=== PATIENT | male | born 1940 | race Caucasian/White ===

== ENCOUNTER 2021-04-25 16:56 | Emergency (ER) | payer MEDICARE ==
[2021-04-25 18:08] LABS: HEMOGLOBIN 13.9 gm/dl (14.0-17.5); RED BLOOD COUNT 4.6 M/UL (4.20-5.50); WHITE BLOOD COUNT 8.2 K/UL (4.5-11.0)
[2021-04-25 18:29] LABS: BUN/CREATININE RATIO 30 (0-10)
== END 2021-04-25 22:25 | disposition home or self-care (01) ==
LOC: ER1 16:56
PROVIDERS: Physician Assistant
DX: I48.91 Unspecified atrial fibrillation (principal); E03.9 Hypothyroidism, unspecified; I10 Essential (primary) hypertension; Z85.05 Personal history of malignant neoplasm of liver
CPT/HCPCS: 71045; 80053; 82550; 82553; 83874; 84439; 84443; 84484; 85025; 93005; 99285

== ENCOUNTER 2021-05-03 12:44 | Inpatient (IN) | payer MEDICARE ==
[~2021-05-03] VITALS: Ht 182.9 cm; Wt 84.8 kg
[2021-05-03 13:21] LABS: HEMOGLOBIN 14.5 gm/dl (14.0-17.5); RED BLOOD COUNT 4.53 M/UL (4.20-5.50); WHITE BLOOD COUNT 9.9 K/UL (4.5-11.0)
[2021-05-03 13:45] LABS: BUN/CREATININE RATIO 40 (0-10)
[2021-05-04 04:01] LABS: HEMOGLOBIN 13.4 gm/dl (14.0-17.5); RED BLOOD COUNT 4.23 M/UL (4.20-5.50); WHITE BLOOD COUNT 9.1 K/UL (4.5-11.0)
[2021-05-04 09:28] LABS: ADENOVIRUS F 40/41 Not Detected (Negative); ASTROVIRUS Not Detected (Negative); CAMPYLOBACTER Not Detected (Negative); CLOSTRIDIUM DIFFICILE TOX A/B Not Detected (Negative); CRYPTOSPORIDIUM Not Detected (Negative); E.COLI 0157 Not Detected (Negative); ENTAMOEBA HISTOLYTICA Not Detected (Negative); ENTEROAGGREGATIVE E.COLI (EAEC Not Detected (Negative); ENTEROPATHOGENIC E.COLI (EPEC) Not Detected (Negative); ENTEROTOXIGENIC E.COLI (ETEC) Not Detected (Negative); GIARDIA LAMBLIA Not Detected (Negative); NOROVIRUS GI/GII Not Detected (Negative); PLESIOMONAS SHIGELLOIDES Not Detected (Negative); ROTOVIRUS A Not Detected (Negative); SALMONELLA Not Detected (Negative); SAPOVIRUS Not Detected (Negative); SHIG/ENTEROINVAS.ECOLI (EIEC) Not Detected (Negative); SHIGA-LIK TOX.PRO.E.COLI (STEC Not Detected (Negative); VIBRIO Not Detected (Negative); VIBRIO CHOLERAE Not Detected (Negative); YERSINIA ENTEROCOLITICA Not Detected (Negative)
[2021-05-04] MEDS ORDERED: LOPRESSOR100 MG PO (11:32)
[2021-05-04] MEDS ORDERED: ELIQUIS 5 MG TAB5 MG PO (11:33)
[2021-05-04] MEDS ORDERED: KLOR-CON 1010 MEQ PO (11:33)
[2021-05-04] MEDS ORDERED: NORVASC5 MG PO (11:34)
[2021-05-04] MEDS ORDERED: HYDROCHLOROTHIA25 MG PO (11:35)
[2021-05-04] MEDS ORDERED: LIPITOR40 MG PO (11:35)
[2021-05-04] MEDS ORDERED: HUMALOG100 UNIT/1 SC (11:35)
[2021-05-04] MEDS ORDERED: LANTUS100 UNIT/1 SC (11:36)
[2021-05-04] MEDS ORDERED: ZESTRIL 40 MG T40 MG PO (11:36)
[2021-05-06 02:44] LABS: RED BLOOD COUNT 4.16 M/UL (4.20-5.50); WHITE BLOOD COUNT 6.8 K/UL (4.5-11.0)
[2021-05-07 03:44] LABS: HEMOGLOBIN 13.4 gm/dl (14.0-17.5); RED BLOOD COUNT 4.28 M/UL (4.20-5.50); WHITE BLOOD COUNT 7.7 K/UL (4.5-11.0)
[2021-05-08 15:49] LABS: HEMOGLOBIN 14.2 gm/dl (14.0-17.5); RED BLOOD COUNT 4.44 M/UL (4.20-5.50); WHITE BLOOD COUNT 9.5 K/UL (4.5-11.0)
[2021-05-09 03:28] LABS: HEMOGLOBIN 14.1 gm/dl (14.0-17.5); RED BLOOD COUNT 4.43 M/UL (4.20-5.50); WHITE BLOOD COUNT 10.2 K/UL (4.5-11.0)
--- NOTE | 2021-05-09 12:32 | NUR ---
Lab results reviewed with patient and family per patient request
[2021-05-10 05:10] LABS: HEMOGLOBIN 14.6 gm/dl (14.0-17.5)
[2021-05-10 05:14] LABS: RED BLOOD COUNT 4.94 M/UL (4.20-5.50); WHITE BLOOD COUNT 4.3 K/UL (4.5-11.0)
[2021-05-10 05:52] LABS: BUN/CREATININE RATIO 28 (0-10)
--- NOTE | 2021-05-11 01:11 | NUR ---
PT PULLED OUT IV. ARM ASSESSED RED AND WARM. PLACED ICEPACK ON ARM. PT DRINKING ADEQUATE FLUIDS AND IV ANTIBIOTICS HAVE BEEN DISCONTINUED. DISCUSSED WITH PATIENT AT THIS TIME. PT DOES NOT WISH TO HAVE IV REPLACED STATES. "IM BEING DISCHARGED TODAY AND DON'T REALLY WANT IT"
[2021-05-11 06:53] LABS: RED BLOOD COUNT 4.76 M/UL (4.20-5.50); WHITE BLOOD COUNT 9.9 K/UL (4.5-11.0)
--- NOTE | 2021-05-12 00:21 | NUR ---
PT REFUSED HIS PERCOCET AND XANAX. PROVIDED PT CHRISTINA. WITNESSED BY NEYMAR WYLIEGROUND SUPPORT EQUIPMENT ASSEMBLER. WILL ATTEMPT IV AND TELE PLACEMENT ONCE PT CALMER.
[2021-05-12 07:16] LABS: HEMOGLOBIN 14.2 gm/dl (14.0-17.5); RED BLOOD COUNT 4.46 M/UL (4.20-5.50); WHITE BLOOD COUNT 11.5 K/UL (4.5-11.0)
[2021-05-12 17:13] LABS: HEMOGLOBIN 13.8 gm/dl (14.0-17.5); RED BLOOD COUNT 4.29 M/UL (4.20-5.50); WHITE BLOOD COUNT 13.8 K/UL (4.5-11.0)
--- NOTE | 2021-05-12 18:14 | NUR ---
PT ARRIVED TO UNIT AT 17:30, CURRENT BP IS 95/37, ATTEMPTED SECOND IV X4 WITHOUT SUCCESS, PT RESTING IN BED, NO CURRENT DISTRESS NOTED AT THIS TIME.
[2021-05-13 06:20] LABS: BUN/CREATININE RATIO 28 (0-10)
--- NOTE | 2021-05-15 23:15 | NUR ---
ATTEMPTED TO CALL CAM (STEP DAUGHTER) WHEN NOTICING VITALS SIGN WORSENING, WENT TO [facility]; CALLED AT 20:05. PATIENTS VITALS KEPT DROPPING AND BECAME ASYSTOLE AT 20:10 AND WAS VERIFIED WITH ANOTHER NURSE. CALLED THE OTHER DAUGHTER (KOLBY) AT 20:11 TO INFORM HER OF WHAT HAPPENED. FAMILY AND MD AWARE OF PATIENTS . CALLED FAMILY BACK AT 20:37 TO OBTAIN SOME MORE INFORMATION REGARDING WHICH INTERMEDIATE THEY WOULD LIKE FOR ME TO RELEASE THE BODY TO. FAMILY WILL BE DOING SOME RESEARCH AND CALLING BACK. SPOKE TO FAMILY ONCE AGAIN AT 21:55 AND OBTAINED INFORMATION REGARDING HOME AND CONSENT VIA PHONE TO RELEASE THE BODY. VERIFIED WITH A SECOND NURSE.
== END 2021-05-15 20:10 | disposition expired | DRG 435 ==
LOC: ER1 12:44 → CDU 15:03 → MED SURG 4 15:03 → PROG CARE 05-12 17:27
PROVIDERS: Emergency Medicine; Internal Medicine; Internal Medicine Nephrology; Physician Assistant; Physician Assistant Medical; ADMIT Internal Medicine
PROC: B24BZZ4 Ultrasonography of Heart with Aorta, Transesophageal (ICD-10-PCS; 2021-05-06)
PROC: 0FD23ZX Extraction of Left Lobe Liver, Percutaneous Approach, Diagnostic (ICD-10-PCS; principal; 2021-05-08)
PROC: BF45ZZZ Ultrasonography of Liver (ICD-10-PCS; 2021-05-08)
PROC: 3E033XZ Introduction of Vasopressor into Peripheral Vein, Percutaneous Approach (ICD-10-PCS; 2021-05-12)
DX: C78.7 Secondary malignant neoplasm of liver and intrahepatic bile duct (principal); J96.01 Acute respiratory failure with hypoxia; E43 Unspecified severe protein-calorie malnutrition; N17.0 Acute kidney failure with tubular necrosis; J18.9 Pneumonia, unspecified organism; A41.9 Sepsis, unspecified organism; C78.6 Secondary malignant neoplasm of retroperitoneum and peritoneum; I47.2 Ventricular tachycardia; R18.8 Other ascites; I48.20 Chronic atrial fibrillation, unspecified; C78.00 Secondary malignant neoplasm of unspecified lung; C79.72 Secondary malignant neoplasm of left adrenal gland; C79.71 Secondary malignant neoplasm of right adrenal gland; C79.51 Secondary malignant neoplasm of bone; N17.9 Acute kidney failure, unspecified; I13.0 Hypertensive heart and chronic kidney disease with heart failure and stage 1 through stage 4 chronic kidney disease, or unspecified chronic kidney disease; Z51.5 Encounter for palliative care; Z20.822 Contact with and (suspected) exposure to COVID-19; Z66 Do not resuscitate; N18.9 Chronic kidney disease, unspecified; K57.30 Diverticulosis of large intestine without perforation or abscess without bleeding; J98.8 Other specified respiratory disorders; F17.210 Nicotine dependence, cigarettes, uncomplicated; E86.0 Dehydration; I50.9 Heart failure, unspecified; E11.9 Type 2 diabetes mellitus without complications; E87.6 Hypokalemia; E27.9 Disorder of adrenal gland, unspecified; I34.0 Nonrheumatic mitral (valve) insufficiency; I95.89 Other hypotension; F41.9 Anxiety disorder, unspecified; Z79.01 Long term (current) use of anticoagulants; Z85.828 Personal history of other malignant neoplasm of skin; Z90.49 Acquired absence of other specified parts of digestive tract; Z79.4 Long term (current) use of insulin; Z68.25 Body mass index [BMI] 25.0-25.9, adult
CPT/HCPCS: ECHO; 36415; 70450; 71045; 71250; 80048; 80053; 80202; 81001; 82436; 82550; 82553; 82570; 82962; 83036; 83605; 83690; 83735; 83874; 83880; 84100; 84133; 84156; 84300; 84439; 84443; 84484; 85025; 85027; 85610; 85730; 87040; 87507; 92610; 93005; 93306; 96374; 96375; 97162; 99285; J1160; J2060; J2185; J2270; J2405; J2543; J3370; J3486; J7030; J7070; P9047; U0002